=== PATIENT | male | born 1965 | race Caucasian/White ===

== ENCOUNTER 2017-03-05 09:54 | Emergency (ER) | payer OTHER ==
[~2017-03-05] VITALS: Ht 167.6 cm; Wt 79.4 kg
[~2017-03-05 09:54] MED LIST: CELEBREX100 MG PO; COZAAR50 MG; SKELAXIN800 MG PO
[2017-03-05] MEDS ORDERED: DELSYM COUGH+C180 ML (10:03)
[2017-03-05] MEDS ORDERED: OSEL75CA PO (11:59)
[2017-03-05] MEDS ORDERED: TUSSI PRES-B L120 M1 PO (11:59)
== END 2017-03-05 12:40 | disposition home or self-care (01) ==
LOC: ER 09:54
DX: J11.1 Influenza due to unidentified influenza virus with other respiratory manifestations (principal); B34.9 Viral infection, unspecified

== ENCOUNTER 2019-07-17 08:53 | Emergency (ER) | payer OTHER ==
[~2019-07-17] VITALS: Ht 170.2 cm; Wt 88.5 kg
[~2019-07-17 08:53] MED LIST changes: +DELSYM COUGH+C180 ML; +OSEL75CA PO; +TUSSI PRES-B L120 M1 PO
== END 2019-07-17 13:53 | disposition home or self-care (01) ==
LOC: ER 08:53
DX: N20.2 Calculus of kidney with calculus of ureter (principal)

== ENCOUNTER 2021-04-28 22:43 | Emergency (ER) | payer OTHER ==
[~2021-04-28] VITALS: Ht 170.2 cm; Wt 88.0 kg
[2021-04-29] MEDS ORDERED: DICLOFENAC SODI75 MG PO (00:18)
[2021-04-29] MEDS ORDERED: NORFLEX100MG PO (00:22)
== END 2021-04-29 00:32 | disposition home or self-care (01) ==
LOC: ER 22:43
DX: M54.50 Low back pain, unspecified (principal)